=== PATIENT | male | born 1945 | race Caucasian/White ===

== ENCOUNTER → 2016-10-09 10:12 | Outpatient (CLI) | payer MEDICARE ==
[2013-03-11 11:13] VITALS: BMI 29.8
[~2016-10-09 10:12] MED LIST: ASPIRIN 81 MG E81 MG PO; COZAAR100 MG PO; HCTZ25 MG PO; PERCOCET 10/3251 TA1 PO; PRILOSEC20 MG PO; TIROSINT112 MCG PO; TRIGLIDE160 MG PO
[2016-10-24 06:20] VITALS: BMI 30.7
== END | disposition home or self-care (01) ==
LOC: D.MRI 10:12
DX: M25.811 Other specified joint disorders, right shoulder (principal)

== ENCOUNTER 2016-10-24 05:35 | Day surgery (SDC) | payer MEDICARE ==
[2016-10-23 11:27] LABS: HEMATOCRIT 50.4 % (42.0-54.0); HEMOGLOBIN 17.3 g/dL (13.5-17.5); MCH 30.1 pg (26.0-34.0); MCHC 34.3 g/dL (31.0-37.0); MCV 87.7 fL (80.0-100.0); MEAN PLATELET VOLUME 10.3 fL (7.4-10.4); RBC 5.75 10x6/uL (4.20-6.10); RDW 13.1 % (11.5-14.5); WBC 6.7 10x3/uL (4.8-10.8)
[2016-10-23 11:37] LABS: ANION GAP 12.2 mmol/L (8-16); CALCIUM 9.2 mg/dL (8.5-10.1); CARBON DIOXIDE 26.7 mmol/L (21.0-32.0); CREATININE - SERUM 1.1 mg/dL (0.6-1.3); POTASSIUM - SERUM 3.9 mmol/L (3.5-5.1)
[~2016-10-24] VITALS: Ht 182.9 cm; Wt 102.5 kg
[~2016-10-24 05:35] MED LIST changes: -PERCOCET 10/3251 TA1 PO
[2016-10-24 06:20] VITALS: BP 137/67; Ht 182.9 cm; Wt 102.5 kg
[2016-10-24] MEDS ORDERED: PERCOCET 10/3251 TA1 PO (08:46)
--- NOTE | 2016-10-24 10:18 | NUR ---
0945 IV DC WITH CATHER TIP INTACT
--- NOTE | 2016-10-24 12:12 | OP ---
PATIENT NAME: ADAN LOUIE MEDICAL RECORD: [id number] :49 LOCATION:[facility] ADMISSION DATE: SURGEON: BOB MATOS MD DATE OF OPERATION: 10/24/2016 PREOPERATIVE DIAGNOSES: Right shoulder rotator cuff tear, impingement, acromioclavicular joint degenerative joint disease. POSTOPERATIVE DIAGNOSES: Right shoulder rotator cuff tear, impingement, acromioclavicular joint degenerative joint disease. PROCEDURE PERFORMED: Right shoulder arthroscopic subacromial decompression, distal clavicle excision with open rotator cuff repair. SURGEON: Steve Matos MD. ANESTHESIA: General with a block for postop pain. CONDITION: He tolerated the procedure well and was transferred to the recovery room in stable condition at termination of procedure. INDICATIONS: This is a pleasant 70-year-old gentleman with significant pain in his shoulder. This has gotten progressively worse. He has had an MRI showing a full-thickness tear. It is not getting better and wanted to proceed with repair. We discussed risks, benefits, and alternatives including retear, he understood and wished to proceed. OPERATIVE REPORT: The patient was taken to the operating room and placed in supine position. General anesthesia was obtained. A block was placed in the preop holding area. In the operating room, his right shoulder was confirmed to be the correct shoulder. It was prepped and draped in normal fashion. He did receive Ancef per protocol. Procedure was begun by marking out portal sites, marking up the AC joint, the acromion and the clavicle. I injected the portal sites with 0.25% Marcaine with epinephrine. I established the posterior portal for the scope and inflow and under direct visualization, I established an anterior portal. The glenohumeral joint did not show significant ____ minor changes were noted on the cartilage. The biceps tendon was intact. No significant tearing of the tendon. There was an anterior superior supraspinatus tear noted full thickness. I did do some minor intra-articular debridement then took the scope out, placed it in the subacromial space, debrided the soft tissues including the distal clavicle and a fairly large undersurface acromial spur. I then made a lateral incision, took this down, split the deltoid, placed anterior and posterior retractors, identified the rotator cuff tear. I roughened up this edges as well as the bare area of the footprint and using a rongeur and liv, I then placed 3 suture punch sutures, 6 strand and brought those over the two 4.5 [place] suture anchors. This brought the cuff down very well. It was well opposed to the bone. I did not see any further injury; therefore, I brought the case to a close. It was irrigated copiously then closed with 2-0 Vicryl, then 3-0 Prolene, half inch Steri-Strips. Portals were closed with 3-0 Prolene. He was awakened and transferred to the recovery room in stable condition, having tolerated the procedure well. TRANSINT:[id number] Voice Confirmation ID: [id number] DOCUMENT ID: [id number] OPERATIVE REPORT [id number] ADAN LOUIE, BOB SABA MD at 1212 CC: [id number] DICTATION DATE: 10/24/16 0838 GLASS CHECKER: 10/24/16 1138 [facility] 10/24/16 [place] [id number] [place] [address]
== END 2016-10-24 10:00 | disposition home or self-care (01) ==
LOC: D.OPS 05:35 → D.PAN 07:45 → D.OPS 07:45
PROVIDERS: Anesthesiology
DX: M75.121 Complete rotator cuff tear or rupture of right shoulder, not specified as traumatic (principal); M75.41 Impingement syndrome of right shoulder; M19.011 Primary osteoarthritis, right shoulder

== ENCOUNTER → 2019-07-18 08:45 | Outpatient (CLI) | payer MEDICARE ==
[2016-10-24 06:20] VITALS: BMI 30.7
[~2019-07-18 08:45] MED LIST changes: +PERCOCET 10/3251 TA1 PO
--- NOTE | 2019-07-21 11:25 | EC ---
PATIENT:ADAN LOUIE DATE OF SERVICE: 07/18/19 SEX: M MEDICAL RECORD: [id number] DATE OF : 49 [facility] AGE OF PATIENT: 73 ADMISSION DATE: 07/18/19 REFERRING PHYSICIAN: INTERPRETING PHYSICIAN: AMALIA TEJEDA MD ECHOCARDIOGRAM REPORT ECHO CHARGES 4 ECHO COMPLETE Date: 07/18/19 CLINICAL DIAGNOSIS: PVC'S/PAC'S/MURMUR H/O HTN ECHOCARDIOGRAPHIC MEASUREMENTS (adult normal given) AC root (d.<3.7cm) 3.3 cm LV Septum d (<1.2 cm> 0.9 cm Valve Excursion 2.0 cm LV Septum (systole) 1.4 cm Left Atria (s.<4.0cm> 4.4 cm LVPW d(<1.2cm) 1.0 cm RV (d.<2.3cm) 2.4 cm LVPW (sytole) 1.6 cm LV diastole(<5.6CM) 5.5 cm MV E-F(>70mm/sec) cm LV systole 2.9 cm LVOT Diameter 1.6 cm MV exc.(>10mm) cm Est.ejection fraction (50-75%) % DOPPLER: LVIT cm/sec A 79.0 cm/sec E 124 cm/sec LA cm/sec RVSP 32.3 mmHg LVOT 196 cm/sec AOP1/2T m/s Asc. Ao 238 cm/sec RVOT 93.0 cm/sec RA cm/sec PA 144 cm/sec AV Gradient Peak 23.0 mmHg AV Mean 8.7 mmHg AV Area 1.5 cm MV Gradient Peak 5.9 mmHg MV Mean 2.1 mmHg MV Area cm COMMENTS: OP - HC Solar Tech: 1 JAMEL SANDI Surgical Instrument Repair Specialist: 3 Dr. Martinez TAPE# PACS Pericardial Effusion N DATE OF SERVICE: Adequate 2D, color flow, spectral Doppler, and M-mode. No LVH. LV internal dimension is normal. Wall motion is normal. EF is greater than or equal to 55%. Aortic valve is sclerotic with minimal elevated velocities. Peak gradient of 20 mmHg putting this is a very mild range. The left atrium dilated at 4.4 cm. Mitral valve shows no prolapse. Mild MR. Right-sided chambers grossly normal. Mild TR. ECHOCARDIOGRAM REPORT [id number] ADAN LOUIE TRANSINT:[id number] Voice Confirmation ID: [id number] DOCUMENT ID: [id number] AMALIA TEJEDA MD at 1125 CC: [id number] DICTATION DATE: 07/19/19 1008 WELLNESS SPECIALIST: 07/19/19 1152 DEP CLI 07/18/19 [place] [id number] [place] [id number]
== END | disposition home or self-care (01) ==
LOC: D.HCCECHO 08:45
PROVIDERS: ATTEND Internal Medicine Interventional Cardiology
DX: I25.10 Atherosclerotic heart disease of native coronary artery without angina pectoris (principal)